=== PATIENT | female | born 1960 | race American Indian/Alaskan Native ===

== ENCOUNTER 2019-07-14 12:55 | Emergency (ER) | payer SELFPAY ==
--- NOTE | 2019-07-14 13:25 | Emergency Department Report ---
<DERRELL MARTINEZ - Last Filed: 07/14/19 15:21> ED General Adult HPI - General Chief complaint: Altered Mental Status Stated complaint: AMS Time Seen by Provider: 07/14/19 13:15 Source: EMS, RN notes reviewed - History of Present Illness Initial comments: Called to patient room by nurse.Pt brought in by EMS from work for altered mental status. Pt awake alert talking but not answering questions. She's tearful and restless. Right lip droop noted. Moving all extremities with ease. BP 222/123. Code stroke called. MD Complaint: atltered mental status Onset/Timin (12:18pm) -: Sudden Severity scale (0 -10): 0 Consistency: constant Improves with: none Worsens with: none Associated Symptoms: confusion, other (left facial droop). denies: chest pain, cough, diaphoresis, loss of appetite, shortness of breath, syncope, weakness Treatments Prior to Arrival: none - Related Data Allergies Allergy/AdvReac Type Severity Reaction Status Date / Time No Known Allergies Allergy Verified 07/14/19 13:57 ED Review of Systems Comment: All other systems reviewed and negative Constitutional: no symptoms reported Cardiovascular: denies: chest pain, dyspnea on exertion, edema, syncope Endocrine: denies: no symptoms reported Gastrointestinal: denies: nausea, vomiting Neurological: confusion, other (altered mental status). denies: headache, weakness, paresthesias Psychiatric: anxiety ED Past Medical Hx - Surgical History Past Surgical History?: Yes Additional Surgical History: gastric bypass - Social History Substance Use Type: None ED Physical Exam - General Limitations: Altered Mental Status General appearance: alert, anxious - Head Head exam: Present: atraumatic - Eye Eye exam: Present: PERRL - ENT ENT exam: Present: mucous membranes moist - Neck Neck exam: Present: full ROM - Respiratory Respiratory exam: Present: normal lung sounds bilaterally. Absent: respiratory distress - Cardiovascular Cardiovascular Exam: Present: regular rate, normal rhythm, normal heart sounds - GI/Abdominal GI/Abdominal exam: Present: soft. Absent: distended, tenderness, guarding, rebound - Extremities Exam Extremities exam: Present: normal inspection - Back Exam Back exam: Present: normal inspection - Neurological Exam Neurological exam: Present: alert (awake alert, speech clear but not answering questions when asked. Not stating her name or age. Crying and anxious), other (right side facial droop) - Psychiatric Psychiatric exam: Present: anxious - Skin Skin exam: Present: warm, dry, intact, normal color ED Course - Reevaluation(s) Reevaluation #1: 07/14/19 14:06 Pt boyfriend now at bedside. He confirms that patient had previous stroke 2017 in [place]. Gastric Bypass in [place] prior to the stroke. States she is only taking OTC medications no prescribed medications. 07/14/19 14:15 Discuss with [facility]. ED Medical Decision Making - Lab Data Result diagrams: 07/14/19 13:39 07/14/19 13:39 - EKG Data EKG shows normal: sinus rhythm Rate: normal - EKG Data When compared to previous EKG there are: previous EKG unavailable - Radiology Data Radiology results: report reviewed CT head IMPRESSION: Left temporal lobe parenchymal hematoma. - Medical Decision Making 58 yo female hx of stroke in 2017 in [place]. She currently does not have PCP and not taking any prescribed medications per family. At 12:18pm today she had altered mental status at work. She was brought to this ER code stroke called. Ct of Head showed left Temporal Parenchymal hematoma. BP 234/133 HR 60 given 1 dose of hydralazine 10mg . Started on Nicardipne drip. Pt accepted for admission at [facility]. Dr Franks spoke with accepting physician at [facility]. ED Disposition Clinical Impression: Left temporal lobe hemorrhage Disposition: DC/TX-70 ANOTHER TYPE HLTHCARE Is pt being admited?: Yes Does the pt Need Aspirin: No Condition: Critical Referrals: WILLARD CHAPA MD [Primary Care Provider] - 3-5 Days Time of Disposition: 15:26 <FEROZ FRANKS - Last Filed: 07/15/19 15:11> ED Review of Systems ROS: Stated complaint: AMS Other details as noted in HPI ED Course Vital Signs 07/14/19 07/14/19 07/14/19 13:00 13:03 13:15 Pulse Rate 61 63 Respiratory 16 20 Rate Blood Pressure 230/124 230/124 231/132 O2 Sat by Pulse 98 99 Oximetry 07/14/19 07/14/19 07/14/19 13:37 13:45 13:54 Pulse Rate 60 65 Respiratory 15 Rate Blood Pressure 215/133 204/117 215/133 O2 Sat by Pulse 98 Oximetry 07/14/19 07/14/19 07/14/19 14:01 14:10 14:15 Pulse Rate 74 70 61 Respiratory 17 15 14 Rate Blood Pressure 212/112 218/131 184/104 O2 Sat by Pulse 97 99 Oximetry 07/14/19 07/14/19 07/14/19 14:20 14:25 14:30 Pulse Rate 62 63 61 Respiratory 12 20 Rate Blood Pressure 197/122 195/119 186/155 O2 Sat by Pulse 99 99 99 Oximetry 07/14/19 07/14/19 07/14/19 14:35 14:36 14:40 Pulse Rate 62 65 64 Respiratory 18 15 Rate Blood Pressure 173/100 195/119 165/107 O2 Sat by Pulse 99 99 Oximetry 07/14/19 07/14/19 14:45 14:50 Pulse Rate 66 69 Respiratory 17 12 Rate Blood Pressure 169/103 172/95 O2 Sat by Pulse 95 98 Oximetry - Reevaluation(s) Reevaluation #2: I seen and examined this 48-year-old female. Apparently she went to work today and became altered. EMS was summoned. She is transferred to this facility and a code stroke was called. She has a history of prior stroke. She is unable to adequately communicate at this time. Family members cannot give me further history is a were not present when the event occurred. Apparently the patient has not been to a physician in quite some time. She has no known history of hypertension and was not taking an antihypertensive agent. Physical exam reveals: An aphasic patient who is confused. She is able follow some simple commands. HEENT normocephalic and traumatic Neck moving without difficulty Cardiovascular regular rate and rhythm Chest clear to auscultation Abdomen soft and nontender Physical exam without deformity Neurological exam patient's GCS is 14-15 Her exam is largely nonfocal although limited due to aphasia Her right plantar reflexes strongly upgoing and her left is neutral Imaging studies CT of the head showed a 3 x 1.5 x 4.5 cm left temporal parenchymal hemorrhage There is local edema but no signs of midline shift or hydrocephalus Impression Acute intracranial hemorrhage left temporal lobe Hypertensive emergency Plan The patient was initially given hydralazine by the [facility] and the stroke neurologist while I was Debating another patient with a subarachnoid hemorrhage. I have ordered an record of the drip. I have spoken to Dr. Mason at [facility] ICU. His accepted the patient. She will be going expeditiously 2 [facility]. Family has been counseled as to the nature of her problem and the need for transfer. She is stable for transfer at this time. 07/14/19 14:25 ED Medical Decision Making - Lab Data Result diagrams: 07/14/19 13:39 07/14/19 13:39 Critical Care Time: Yes Critical care time in (mins) excluding proc time.: 45 Critical care attestation.: If time is entered above; I have spent that time in minutes in the direct care of this critically ill patient, excluding procedure time. ED Disposition Is pt being admited?: No Does the pt Need Aspirin: No
--- NOTE | 2019-07-14 13:37 | Progress Note ---
Subjective Date of service: 07/14/19 Interval history: code stroke documentation there is fresh blood in the left sylvian fissure this almost certainly is aneurysm can not tell the site of the defect proximal or distal middle cerebral artery aneurysm has all the appearance of aneurysm as opposed to AVM or HTN advise GENERAL FREIGHT AGENT bleed protocal care plan Objective - Vital Sign Vital Signs - 12hr 07/14/19 13:00 Pulse Rate 61 Respiratory 16 Rate Blood Pressure 230/124 O2 Sat by Pulse 98 Oximetry
[2019-07-14] MEDS ORDERED: levETIRAcetam 1000 MG/NS 0.75% 1,000 MG/100 ML BAG IV ONE ×2 (13:40→13:42)
--- NOTE | 2019-07-14 13:44 | Emergency Department Report ---
ED Altered Mental Status HPI - General Chief Complaint: Altered Mental Status Stated Complaint: AMS Time Seen by Provider: 07/14/19 13:15 Source: EMS Mode of arrival: Stretcher Limitations: No Limitations - History of Present Illness Initial Comments: [employer] [facility] Date of Service: 07/14/2019 13:15:47 Impression: Small left hemorrhage so notpa, possible venous phase? - cta head/neck - defer to nsgy, trnasfer, keppra 1000 mg IV x 1. Comments: The patient is disoriented, and states its almost alison, and states that she has a right sided facial droop. She states that it is july 12. She has a hemorrhage to the left temporal lobe #1. Left hemispheric Hemorrgage #2. CTA Head/neck and CT venogram #3. Transfer for immediate evaluateion #4. Discussed with Ed, . #5. Left hemispheric bleed is unusual in pattern, considering venous bleed so CTA/CTV will be necessary. BP GOAL < 180/100 she is hypertensive at this time. Nursing to investiggate history of blood thinners. Mechanism of Stroke:P Not Clear Metrics: Last Known Well: Unknown [employer] Notification Time: 07/14/2019 13:15:02 Arrival Time: 07/14/2019 13:15:02 Stamp Time: 07/14/2019 13:15:47 Time First Login Attempt: 07/14/2019 13:21:40 Video Start Time: 07/14/2019 13:21:40 Symptoms: AMS, no clue of AMS NIHSS Start Assessment Time: 07/14/2019 13:29:02 Patient is not a candidate for tPA. Patient was not deemed candidate for tPA thrombolytics because of Last Well Known Above 4.5 Hours. + bleed. Video End Time: 07/14/2019 13:31:09 CT head was reviewed and results were: left hemispheric, almost cortical bleed, might consider venous bleed, possible but nsgy to be contacted, and advance imaging necessary. Advanced imaging is to be reviewed by ED physician and CHUCK. Radiologist was called back for review of advanced imaging on 07/14/2019 13:31:36 ER Physician notified of the decision on thrombolytics management on 07/14/2019 13:31:35 Our recommendations are outlined below. Recommendations: Activate Stroke Protocol Admission/Order Set Stroke/Telemetry Floor Neuro Checks Bedside Swallow Eval DVT Prophylaxis IV Fluids, Normal Saline Head of Bed Below 30 Degrees Euglycemia and Avoid Hyperthermia (PRN Acetaminophen) Hold Antithrombotics for Now HOB ELEVATED NSGY REverse any a/c Lipid Panel to Be Obtained, if Not Done in the Last Three Months Therapies: Physical Therapy, Occupational Therapy, Speech Therapy Assessment When Applicable Dysphaghia Screen: Swallow Evaluation, Bedside NPO Until Swallow Evaluation DVT prophylaxis: Choice of Primary Team Disposition: Follow up with Teleneurology Follow up Sign Out: Discussed with Emergency Department Provider History of Present Illness: Patient is a 58 year old Female. [employer]orkers called this in, where she was at work and acting not her usual self. CT head was reviewed. There is no history of hemorrhagic complications or intracranial hemorrhage. Examination: BP(215/133), Pulse(110), Blood Glucose(89) 1A: Level of Consciousness - Arouses to minor stimulation + 1 1B: Ask Month and Age - 1 Question Right + 1 1C: Blink Eyes & Squeeze Hands - Performs Both Tasks + 0 2: Test Horizontal Extraocular Movements - Normal + 0 3: Test Visual Torres - No Visual Loss + 0 4: Test Facial Palsy (Use Grimace if Obtunded) - Normal symmetry + 0 5A: Test Left Arm Motor Drift - No Drift for 10 Seconds + 0 5B: Test Right Arm Motor Drift - No Drift for 10 Seconds + 0 6A: Test Left Leg Motor Drift - No Drift for 5 Seconds + 0 6B: Test Right Leg Motor Drift - No Drift for 5 Seconds + 0 7: Test Limb Ataxia (FNF/Heel-Johnson) - No Ataxia + 0 8: Test Sensation - Normal; No sensory loss + 0 9: Test Language/Aphasia - Normal; No aphasia + 0 10: Test Dysarthria - Normal + 0 11: Test Extinction/Inattention - No abnormality + 0 NIHSS Score: 2 Patient was informed the Neurology Consult would happen via TeleHealth consult by way of interactive audio and video telecommunications and consented to receiving care in this manner. Due to the immediate potential for life-threatening deterioration due to underlying acute neurologic illness, I spent 35 minutes providing critical care. This time includes time for face to face visit via telemedicine, review of medical records, imaging studies and discussion of findings with providers, the patient and/or family. Dr Kiran Sparks [employer] Case [id number] Complaint: altered mental status - Related Data Allergies Allergy/AdvReac Type Severity Reaction Status Date / Time Unable to Assess Allergy Unverified 07/14/19 13:21 ED Review of Systems ROS: Stated complaint: AMS Other details as noted in HPI Neurological: other (altered mental status) Psychiatric: anxiety ED Past Medical Hx - Past Medical History Previous Medical History?: No Additional medical history: unable to obtain . pt is altered - Surgical History Past Surgical History?: No - Social History Smoking Status: Unknown if ever smoked Substance Use Type: None ED Physical Exam - General Limitations: No Limitations General appearance: alert, anxious ED Course Vital Signs 07/14/19 07/14/19 07/14/19 13:00 13:03 13:15 Pulse Rate 61 63 Respiratory 16 20 Rate Blood Pressure 230/124 230/124 231/132 O2 Sat by Pulse 98 99 Oximetry 07/14/19 13:37 Pulse Rate Respiratory Rate Blood Pressure 215/133 O2 Sat by Pulse Oximetry Critical care attestation.: If time is entered above; I have spent that time in minutes in the direct care of this critically ill patient, excluding procedure time. ED Disposition Condition: Stable
--- NOTE | 2019-07-14 13:51 | Cat Scan Report ---
CT BRAIN: 07/14/2019 INDICATION / CLINICAL INFORMATION: MAIN: CODE STROKE neuro deficits <6hrs or sx present upon awakening RT SIDE DROOPY #[id number] . COMPARISON: None available. FINDINGS: BRAIN/INTRACRANIAL STRUCTURES: Unenhanced CT images of the brain demonstrate a left temporal lobe par enchymal hemorrhage, measuring 2.9 x 1.4 x 4.5 cm. Small amount of surrounding edema is present. Loca l mass effect is present, with no evidence of hydrocephalus or midline shift. No other areas of hemorrhage are present. Ventricles and sulci are normal in size and shape. Chronic white matter hypoattenuation is present. EXTRACRANIAL STRUCTURES: Unremarkable. IMPRESSION: Left temporal lobe parenchymal hematoma. Positive critical value: Time of discovery: [address] Notification: FRONT END WEB DEVELOPER in the emergency department at [address] scans at this location are performed using dose reduction to ALARA by means of automated expos ure control. Signer Name: Sherman Miles MD Signed: 07/14/2019 1:46 PM Workstation Name: [id number]
[2019-07-14] MEDS ORDERED: hydrALAZINE 20 MG/1 ML INJ ONE (13:52)
[2019-07-14] MEDS ORDERED: hydrALAZINE 20 MG/1 ML INJ IV ONE (13:53)
[2019-07-14 14:25] LABS: Basophils % (Auto) 0.7 % (0.0-1.8); Eosinophils # (Auto) 0.1 K/mm3 (0.0-0.4); Hematocrit 41.6 % (30.3-42.9); Hemoglobin 13.9 gm/dl (10.1-14.3); Lymphocytes # (Auto) 1.1 K/mm3 (1.2-5.4); Lymphocytes % (Auto) 33.1 % (13.4-35.0); Mean Corpuscular HGB Conc 33 % (30-34); Mean Corpuscular Volume 97 fl (79-97); Monocytes # (Auto) 0.3 K/mm3 (0.0-0.8); Monocytes % (Auto) 7.5 % (0.0-7.3); Platelet Count 207 K/mm3 (140-440); Red Blood Count 4.29 M/mm3 (3.65-5.03); Red Cell Distribution Width 14.4 % (13.2-15.2)
[2019-07-14 14:38] LABS: BUN/Creatinine Ratio 18; Blood Urea Nitrogen 11 mg/dL (7-17); Calcium 9.1 mg/dL (8.4-10.2); Hemolysis Index 9
[2019-07-14 14:53] VITALS: BP 172/95
[2019-07-14 14:55] LABS: INR 0.92 (0.87-1.13)
[2019-07-14 14:56] LABS: Partial Thromboplastin Time 26.5 Sec. (24.2-36.6); Thrombin Time 15.5 Sec. (15.1-19.6)
[2019-07-14] MEDS ORDERED: niCARdipine 50 MG in SODIUM CHLORIDE 0.9% 250ML 230 ML IV SCH (15:00)
[2019-07-14] MEDS ORDERED: SODIUM CHLORIDE 0.9% 500 ML 500 ML ONE (15:08)
== END 2019-07-14 15:14 | disposition other institution (70) ==
LOC: ED 12:55
DX: I61.1 Nontraumatic intracerebral hemorrhage in hemisphere, cortical (principal); F41.9 Anxiety disorder, unspecified; Z98.890 Other specified postprocedural states
CPT/HCPCS: 36415; 70450; 80048; 84484; 85025; 85610; 85670; 85730; 93005; 93010; 96365; 96375; 99285; J0360; J1953; J7040; J7050

== ENCOUNTER 2021-02-03 21:52 | Emergency (ER) | payer SELFPAY | END 2021-02-04 00:32 | disposition left against medical advice (07) | LOC: ED 21:52 | DX: R10.9 Unspecified abdominal pain (principal); Z53.21 Procedure and treatment not carried out due to patient leaving prior to being seen by health care provider ==